=== PATIENT | male | born 1955 ===

== ENCOUNTER 2022-10-13 21:11 | Inpatient (IN) | payer OTHER ==
[~2022-10-13] VITALS: Ht 182.9 cm; Wt 133.7 kg
[2022-10-13 22:30] VITALS: BP 98/64
[2022-10-13] MEDS ORDERED: ELIQUIS2.5 MG PO (22:43)
[2022-10-13] MEDS ORDERED: ATEN50 PO (22:43)
[2022-10-13] MEDS ORDERED: GABA300 PO (22:44)
[2022-10-13 22:45] VITALS: BP 83/60
[2022-10-13] MEDS ORDERED: OMEP20ER PO (22:48)
[2022-10-13] MEDS ORDERED: BASAGLAR K100 UNIT/3 SC (22:52)
[2022-10-13] MEDS ORDERED: ROSU10TA PO (22:53)
[2022-10-13] MEDS ORDERED: OXYC5 PO (22:53)
[2022-10-13] MEDS ORDERED: FURO20 PO (22:54)
[2022-10-13 23:00] VITALS: BP 93/59
[2022-10-13 23:15] VITALS: BP 101/74
[2022-10-13 23:30] VITALS: BP 102/71
[2022-10-13 23:45] VITALS: BP 88/62
[2022-10-14] VITALS (41 sets, daily range): BP systolic 79–126; BP diastolic 47–92
[2022-10-14 01:20] LABS: Base Excess Venous -5.4 mmol/L; Bicarbonate Venous 20.1 mmol/L (24.0-30.0); PCO2 Venous 34.9 mmHg (38-42); pH Blood Venous 7.37 (7.34-7.37)
[2022-10-14 01:24] LABS: BASOPHILS ABSOLUTE AUTO 0.03 K/mm3 (0.00-0.23); BASOPHILS PERCENT AUTO 0 % (0-2); EOSINOPHILS ABSOLUTE AUTO 0.05 K/mm3 (0.00-0.68); EOSINOPHILS PERCENT AUTO 1 % (0-6); Hematocrit 26.1 % (37.0-53.0); IMMATURE GRAN ABSOLUTE AUTO 0.03 K/mm3 (0.00-0.10); IMMATURE GRAN PERCENT AUTO 0 % (0-1); LYMPHOCYTES ABSOLUTE AUTO 0.84 K/mm3 (0.84-5.20); LYMPHOCYTES PERCENT AUTO 10 % (21-46); MONOCYTES ABSOLUTE AUTO 1.05 K/mm3 (0.16-1.47); MONOCYTES PERCENT AUTO 13 % (4-13); Mean Corpuscular HGB 24.4 pg (26.0-34.0); Mean Corpuscular HGB Conc 30.7 g/dL (31.5-36.5); Mean Corpuscular Volume 80 fL (80-100); NEUTROPHILS ABSOLUTE AUTO 6.36 K/mm3 (1.96-9.15); NEUTROPHILS PERCENT AUTO 76 % (41-73); RDW Coefficient Variation 17.5 % (11.7-14.2); RDW Standard Deviation 50.3 fL (35.1-46.3); Red Blood Cell Count 3.28 M/mm3 (4.30-5.90); White Blood Cell Count 8.36 K/mm3 (4.00-11.30)
[2022-10-14 01:32] LABS: Platelet Count 50 K/mm3 (150-400)
[2022-10-14 01:46] LABS: International Normalized Ratio 1.36
[2022-10-14 01:49] LABS: Albumin/Globulin Ratio 0.5 (0.8-1.8); Bilirubin, Total 0.9 mg/dL (0.1-1.0); Bun/Creatinine Ratio 19.8 (12.0-20.0); Creatinine, Blood 2.53 mg/dL (0.60-1.20); Globulin, Blood 3.9 g/dL (2.2-4.0); Magnesium, Blood 1.5 mg/dL (1.6-2.4); Potassium, Blood 4.2 mmol/L (3.5-5.5); Thyroid Stimulating Hormone 7.45 uIU/mL (0.360-4.800); Total Protein, Blood 5.9 g/dL (6.4-8.2)
[2022-10-14 03:00] LABS: Free Thyroxine 0.93 ng/dL (0.70-1.60); Triiodothyronine, Free 1.03 pg/mL (2.18-3.98)
[2022-10-14 05:33] LABS: BASOPHILS ABSOLUTE AUTO 0.02 K/mm3 (0.00-0.23); BASOPHILS PERCENT AUTO 0 % (0-2); EOSINOPHILS ABSOLUTE AUTO 0.11 K/mm3 (0.00-0.68); EOSINOPHILS PERCENT AUTO 2 % (0-6); Hematocrit 28.7 % (37.0-53.0); Hemoglobin 8.8 g/dL (13.5-17.5); IMMATURE GRAN ABSOLUTE AUTO 0.03 K/mm3 (0.00-0.10); IMMATURE GRAN PERCENT AUTO 0 % (0-1); LYMPHOCYTES ABSOLUTE AUTO 0.84 K/mm3 (0.84-5.20); LYMPHOCYTES PERCENT AUTO 12 % (21-46); MONOCYTES ABSOLUTE AUTO 0.84 K/mm3 (0.16-1.47); MONOCYTES PERCENT AUTO 12 % (4-13); Mean Corpuscular HGB 24.9 pg (26.0-34.0); Mean Corpuscular HGB Conc 30.7 g/dL (31.5-36.5); Mean Corpuscular Volume 81 fL (80-100); Mean Platelet Volume 12.4 fL (9.1-12.4); NEUTROPHILS ABSOLUTE AUTO 5.45 K/mm3 (1.96-9.15); NEUTROPHILS PERCENT AUTO 75 % (41-73); RDW Coefficient Variation 17.6 % (11.7-14.2); RDW Standard Deviation 51.5 fL (35.1-46.3); Red Blood Cell Count 3.54 M/mm3 (4.30-5.90); White Blood Cell Count 7.29 K/mm3 (4.00-11.30)
[2022-10-14 05:57] LABS: Platelet Count 49 K/mm3 (150-400)
--- NOTE | 2022-10-14 06:51 | NUR ---
SHIFT SUMMARY PATIENT ARRIVED VIA EMS FROM [facility] ON [facility] AND HEPARIN. PATIENT A&OX4. NO FAMILY AT BEDSIDE. PATIENT ARRIVED WITH X3 PIV'S AND BASSETT CATH ALL PLACED AT [facility] PER ED RN CHRIS. PATIENT ALSO ARRIVED ON 2L NC. PATIENTS VITALS HAVE BEEN STABLE (MAP >65) WTIHOUT PRESSORS AND ON ROOM AIR SINCE ARRIVAL. PATIENT IS VERY EDEMATOUS FROM MID TORSO DOWN TO LOWER EXTREMETIES. PATIENT ARRIVED WITH BUE BRUISING. SCRATCHES AND REDNESS TO BLE. MINIMAL BLOOD CLOTS NOTED IN BASSETT CATH DR. DEL TORO MADE AWARE.
[2022-10-14 08:30] LABS: Source, Urine Foley catheter
[2022-10-14 08:51] LABS: Appearance, Urine Clear (Clear); Bilirubin, Urine Neg (Neg); Blood, Urine 5+ (Neg); Color, Urine Yellow (P-Yellow); Glucose Qualitative, Urine Neg (Neg); Ketones, Urine Neg (Neg); Leukocyte Esterase, Urine 1+ (Neg); Nitrite, Urine Neg (Neg); Protein, Urine 2+ (Neg); Urobilinogen, Urine NORM (Normal)
[2022-10-14 09:09] LABS: Red Blood Cells, Urine 50-100 /hpf (0-2); White Blood Cells, Urine 0-2 /hpf (0-5)
[2022-10-14 09:10] LABS: Bacteria Mod /hpf; Mucus Light (0-Heavy)
[2022-10-14 09:12] LABS: Squamous Epithelial Cells Rare /hpf (Few)
--- NOTE | 2022-10-14 09:17 | NUR ---
ASSUMED CARE REPORT FROM JENNIFER GARCIA AT 0700. PT RESTING IN BED. A&OX 3, UNSURE OF DATE. AWARE OF HX AND SITUATION. PT C/O BACK PAIN ONLY, 11/17, CHRONIC, MEDICATED ORDERED. FOLLOWS SIMPLE COMMANDS. LUNGS DIM IN BASES, ON RA. 1 DEGREE, BP STABLE. RATE 80'S. ABD FIRM, DISTENDED, NON TENDER, BT X 4. HEPATIC DIET ORDERED, TOLERATED WELL. PT HAS 3+ EDEMA FROM BLE TO TRUNK, STATES THIS HAS BEEN OCCURING SINCE JUN, REPORTS THREE ADMISSIONS FOR SAME. BASSETT PATENT, DRAINING CLEAR YELLOW URINE TO GRAVITY. U/S AND ECHO COMPLETE. PARA TOMORROW D/T PT TAKING HOME ELIQUIS YESTERDAY AM. WILL CONTINUE TO MONITOR.
--- NOTE | 2022-10-14 15:05 | NUR ---
Spiritual Care Visit. Pt. is sitting up and eating lunch when he welcomed my visit. Pt. is pleasant but graciously declined spiritual care. Facilitated a short life review. Pt. verbalized that his ruby is mostly something form the past, but verbalized gratitude for the spiritual care visit.
[2022-10-14 16:15] LABS: Albumin, Blood 1.9 g/dL (3.4-5.0); Anion Gap 7 mmol/L (6-16); Blood Urea Nitrogen 47 mg/dL (8-24); Bun/Creatinine Ratio 20.6 (12.0-20.0); CO2, Blood 22 mmol/L (21-32); Calcium, Blood 7.7 mg/dL (8.5-10.1); Chloride, Blood 109 mmol/L (98-108); Creatinine, Blood 2.28 mg/dL (0.60-1.20); Glomerular Filtration Rate 30 (60-); Glucose, Blood 191 mg/dL (70-99); Phosphorus, Blood 3.3 mg/dL (2.5-4.9); Potassium, Blood 3.6 mmol/L (3.5-5.5); Sodium, Blood 138 mmol/L (136-145)
--- NOTE | 2022-10-14 17:26 | NUR ---
SHIFT SUMMARY PT STATUS CHANGED THIS SHIFT. REMAINED OFF PRESSORS, TOLERATED DIURESIS WELL, MAP REMAINED >65. 1000 ML CLEAR YELLOW URINE OUT. PT A&OX 3. FOLLOWS COMMANDS. SLEPT MOST OF SHIFT. LUNGS DIM IN BASES. 1 DEGREE, RATE 80'S. BP STABLE. ABD DISTENDED, FIRM, NON TENDER. BT X 4. TOLERATING DIET WELL. PLAN FOR PARACENTESIS TOMORROW. 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 BASSETT PATENT, DRAINING CLEAR YELLOW URINE TO GRAVITY. 3+ EDEMA TO TRUNK AND BLE. WILL CONTINUE TO MONITOR UNTIL REPORT TO ONCOMING NURSE.
--- NOTE | 2022-10-14 19:05 | NUR ---
ASSUMED CARE PATIENT IN BED SLEEPING. NO FAMILY AT BEDSIDE. VS STABLE. BASSETT CATH PATENT TO GRAVITY
[2022-10-15] VITALS (13 sets, daily range): BP systolic 80–118; BP diastolic 58–86
[2022-10-15 04:59] LABS: BASOPHILS ABSOLUTE AUTO 0.03 K/mm3 (0.00-0.23); BASOPHILS PERCENT AUTO 0 % (0-2); EOSINOPHILS ABSOLUTE AUTO 0.15 K/mm3 (0.00-0.68); EOSINOPHILS PERCENT AUTO 2 % (0-6); Hematocrit 30.6 % (37.0-53.0); Hemoglobin 9.3 g/dL (13.5-17.5); IMMATURE GRAN ABSOLUTE AUTO 0.06 K/mm3 (0.00-0.10); IMMATURE GRAN PERCENT AUTO 1 % (0-1); LYMPHOCYTES ABSOLUTE AUTO 0.96 K/mm3 (0.84-5.20); LYMPHOCYTES PERCENT AUTO 10 % (21-46); MONOCYTES PERCENT AUTO 12 % (4-13); Mean Corpuscular HGB 24.5 pg (26.0-34.0); Mean Corpuscular HGB Conc 30.4 g/dL (31.5-36.5); Mean Corpuscular Volume 81 fL (80-100); NEUTROPHILS ABSOLUTE AUTO 6.91 K/mm3 (1.96-9.15); NEUTROPHILS PERCENT AUTO 75 % (41-73); RDW Coefficient Variation 17.9 % (11.7-14.2); RDW Standard Deviation 51.7 fL (35.1-46.3); White Blood Cell Count 9.21 K/mm3 (4.00-11.30)
[2022-10-15 05:42] LABS: Bun/Creatinine Ratio 21.3 (12.0-20.0); Calcium, Blood 7.9 mg/dL (8.5-10.1); Creatinine, Blood 2.39 mg/dL (0.60-1.20); Potassium, Blood 3.8 mmol/L (3.5-5.5)
[2022-10-15 05:54] LABS: Platelet Count 43 K/mm3 (150-400)
--- NOTE | 2022-10-15 09:17 | NUR ---
UPDATE MD NOTIFIED THIS RN HELD BUMEX D/T PARA TODAY. PT REPORTS TO BE AFRAID OF THE PAIN D/T PARA. ORDERS FOR 50 MCG OF FENTANYL ONCE TO BE GIVEN PRIOR TO PARA. PT TO PARA AT 904.
[2022-10-15 10:44] LABS: Automated BF WBC Count 0.341 K/mm3 (0-999)
[2022-10-15 10:57] LABS: Albumin, Body Fluid 0.8 g/dL; Glucose, Body Fluid 199 mg/dL; Lactate Dehydrogenase, Body Fl 123 U/L
[2022-10-15 11:36] LABS: RBC Count, Body Fluid 204 /mm3 (0-0)
[2022-10-15 11:37] LABS: Appearance, Body Fluid Hazy (Clear); Body Fluid WBC Count 341 /mm3 (0-999); Color, Body Fluid Yellow (None-Yellow)
[2022-10-15 11:49] LABS: Total Cell Count, Body Fluid 100
--- NOTE | 2022-10-15 14:08 | NUR ---
Care Conference: Spoke with pt's Karen at length today; she asks we change pt's code status to DNR/DNI as he has been clear about his wishes throughout the past few hospitalizations, and she states if he gave the impression he only wanted DNI, it is due to confusion. Received v/o from Dr. Alejandre to change this. Karen states she is going into this with her eyes open; that she has a great deal of ruby, but she also realizes the pt could end up needing a higher level of care than she could provide at home, or that he could possibly end up dying as a result of the many complications he is currently experiencing. She plans to come for a visit tomorrow afternoon. Palliative will remain involved.
--- NOTE | 2022-10-15 18:27 | NUR ---
SHIFT SUMMARY PT ALERT AND ORIENTED X 4. FORGETFUL AT TIMES. HR STABLE. BP STABLE. NO CP OR PRESSURE. PT HAD PARA THIS AM. 4 L REMOVED, NO ALBUMIN NEEDED. MINIMAL LEAKING OF FLUID AT PARA SITE. CLEANED AND NEW DRESSING PLACED. OXYGEN SATURATION MAINTAINED ABOVE 92% ON RA. CATHETER REMOVED D/T NO ORDER. PT UNABLE TO URINATE, BLADDER SCAN DONE AND OVER 400. PT IN NEED OF STRAIGHT CATH. SEE EHR FOR INSERTION AND AMOUNT. PT KYMBERLY WELL. PT TURNED Q 2 HRS AND NEEDED. CALL LIGHT WITHIN REACH. WILL CONT TO MONITOR UNTIL REPORT GIVEN TO NIGHTSHIFT RN.
[2022-10-16 00:09] LABS: HBSAG SCREEN Negative (Negative); HCV AB Non Reactive (Non Reactive); HEP A AB, IGM Negative (Negative); HEP B CORE AB, IGM Negative (Negative)
[2022-10-16 04:28] VITALS: BP 109/65
[2022-10-16 05:06] LABS: BASOPHILS ABSOLUTE AUTO 0.03 K/mm3 (0.00-0.23); BASOPHILS PERCENT AUTO 0 % (0-2); EOSINOPHILS ABSOLUTE AUTO 0.14 K/mm3 (0.00-0.68); EOSINOPHILS PERCENT AUTO 2 % (0-6); Hematocrit 27.5 % (37.0-53.0); Hemoglobin 8.8 g/dL (13.5-17.5); IMMATURE GRAN ABSOLUTE AUTO 0.04 K/mm3 (0.00-0.10); IMMATURE GRAN PERCENT AUTO 1 % (0-1); LYMPHOCYTES ABSOLUTE AUTO 0.81 K/mm3 (0.84-5.20); LYMPHOCYTES PERCENT AUTO 10 % (21-46); MONOCYTES ABSOLUTE AUTO 0.81 K/mm3 (0.16-1.47); MONOCYTES PERCENT AUTO 10 % (4-13); Mean Corpuscular HGB 25.3 pg (26.0-34.0); Mean Corpuscular Volume 79 fL (80-100); NEUTROPHILS ABSOLUTE AUTO 6.22 K/mm3 (1.96-9.15); NEUTROPHILS PERCENT AUTO 77 % (41-73); RDW Coefficient Variation 17.8 % (11.7-14.2); RDW Standard Deviation 50.3 fL (35.1-46.3); Red Blood Cell Count 3.48 M/mm3 (4.30-5.90); White Blood Cell Count 8.05 K/mm3 (4.00-11.30)
[2022-10-16 05:32] LABS: Platelet Count 46 K/mm3 (150-400)
--- NOTE | 2022-10-16 06:35 | NUR ---
SHIFT SUMMARY PATIENT ALERT AND ORIENTED X4. PATIENT MEDICATED PER EMAR FOR BACK & L HIP PAIN. NO COMPLAINTS OF CHEST PAIN OR SHORTNESS OF BREATH. PATIENT STRUGGLES TO URINATE EFFECTIVELY HIS SCROTUM HAS SWOLLEN AROUND HIS PENIS, WAS ABLE TO USE THE URINAL WITH ASSISTANCE. PATIENT ON ROOM AIR. VITAL SIGNS STABLE. NO ACUTE ISSUES NOTED OVERNIGHT. WILL CONTINUE TO MONITOR. CALL LIGHT WITHIN REACH.
[2022-10-16 08:44] VITALS: BP 91/56
[2022-10-16 10:39] LABS: Calcium, Blood 7.7 mg/dL (8.5-10.1); Creatinine, Blood 2.32 mg/dL (0.60-1.20)
[2022-10-16 11:52] VITALS: BP 95/66
[2022-10-16 16:35] VITALS: BP 89/67
[2022-10-16 21:15] VITALS: BP 103/75
[2022-10-17 00:15] VITALS: BP 103/70
[2022-10-17 04:10] LABS: BASOPHILS ABSOLUTE AUTO 0.04 K/mm3 (0.00-0.23); BASOPHILS PERCENT AUTO 1 % (0-2); EOSINOPHILS ABSOLUTE AUTO 0.19 K/mm3 (0.00-0.68); EOSINOPHILS PERCENT AUTO 2 % (0-6); Hematocrit 29.2 % (37.0-53.0); Hemoglobin 9.1 g/dL (13.5-17.5); IMMATURE GRAN ABSOLUTE AUTO 0.05 K/mm3 (0.00-0.10); IMMATURE GRAN PERCENT AUTO 1 % (0-1); LYMPHOCYTES ABSOLUTE AUTO 0.76 K/mm3 (0.84-5.20); LYMPHOCYTES PERCENT AUTO 9 % (21-46); MONOCYTES ABSOLUTE AUTO 0.89 K/mm3 (0.16-1.47); MONOCYTES PERCENT AUTO 11 % (4-13); Mean Corpuscular HGB 24.8 pg (26.0-34.0); Mean Corpuscular HGB Conc 31.2 g/dL (31.5-36.5); Mean Corpuscular Volume 80 fL (80-100); NEUTROPHILS ABSOLUTE AUTO 6.12 K/mm3 (1.96-9.15); NEUTROPHILS PERCENT AUTO 76 % (41-73); Platelet Count 56 K/mm3 (150-400); RDW Coefficient Variation 18.1 % (11.7-14.2); RDW Standard Deviation 51.5 fL (35.1-46.3); Red Blood Cell Count 3.67 M/mm3 (4.30-5.90); White Blood Cell Count 8.05 K/mm3 (4.00-11.30)
[2022-10-17 04:42] VITALS: BP 114/73
[2022-10-17 04:45] LABS: Bun/Creatinine Ratio 22.2 (12.0-20.0); Calcium, Blood 7.7 mg/dL (8.5-10.1); Creatinine, Blood 2.34 mg/dL (0.60-1.20); Potassium, Blood 3.7 mmol/L (3.5-5.5)
--- NOTE | 2022-10-17 06:24 | NUR ---
SHIFT SUMMARY PATIENT ALERT AND ORIENTED X4. MEDICATED PER EMAR FOR PAIN. SPO2 >90% ON ROOM AIR, NO COMPLAINTS OF SHORTNESS OF BREATH. VITAL SIGNS STABLE. NO ACUTE ISSUES NOTED OVERNIGHT. CALL LIGHT WITHIN REACH
[2022-10-17 08:42] VITALS: BP 106/64
[2022-10-17 13:16] VITALS: BP 113/73
--- NOTE | 2022-10-17 18:21 | NUR ---
SHIFT SUMMARY S/P HYPOVOLEMIC SHOCK, A/OX4, VSS, TOLERATING PO, PAIN MANAGED PER EMAR, STRESS TEST COMPLETED TODAY, PT HAD AN EPISODE OF HYPOTENSION DURING HIS STRESS TEST SO THIS TEST WAS PUSHED BACK TO THIS AFTERNOON BEFORE IT COULD BE COMPLETED. NO OTHER EVENTS TODAY, CALL LIGHT IN REACH, WILL CTM AND REPORT TO ONCOMING MADELYN RN.
[2022-10-17 20:50] VITALS: BP 101/79
[2022-10-17 23:35] VITALS: BP 99/72
[2022-10-18 04:13] VITALS: BP 82/66
[2022-10-18 04:23] LABS: BASOPHILS ABSOLUTE AUTO 0.04 K/mm3 (0.00-0.23); BASOPHILS PERCENT AUTO 1 % (0-2); EOSINOPHILS ABSOLUTE AUTO 0.23 K/mm3 (0.00-0.68); EOSINOPHILS PERCENT AUTO 4 % (0-6); Hematocrit 27.2 % (37.0-53.0); Hemoglobin 8.5 g/dL (13.5-17.5); IMMATURE GRAN ABSOLUTE AUTO 0.03 K/mm3 (0.00-0.10); IMMATURE GRAN PERCENT AUTO 1 % (0-1); LYMPHOCYTES ABSOLUTE AUTO 0.68 K/mm3 (0.84-5.20); LYMPHOCYTES PERCENT AUTO 11 % (21-46); MONOCYTES ABSOLUTE AUTO 0.72 K/mm3 (0.16-1.47); MONOCYTES PERCENT AUTO 11 % (4-13); Mean Corpuscular HGB 24.9 pg (26.0-34.0); Mean Corpuscular HGB Conc 31.3 g/dL (31.5-36.5); Mean Corpuscular Volume 80 fL (80-100); Mean Platelet Volume 12.5 fL (9.1-12.4); NEUTROPHILS ABSOLUTE AUTO 4.77 K/mm3 (1.96-9.15); NEUTROPHILS PERCENT AUTO 74 % (41-73); Platelet Count 57 K/mm3 (150-400); RDW Coefficient Variation 18.2 % (11.7-14.2); RDW Standard Deviation 51.7 fL (35.1-46.3); Red Blood Cell Count 3.41 M/mm3 (4.30-5.90); White Blood Cell Count 6.47 K/mm3 (4.00-11.30)
[2022-10-18 04:45] LABS: Albumin, Blood 1.6 g/dL (3.4-5.0); Albumin/Globulin Ratio 0.4 (0.8-1.8); Bilirubin, Total 0.7 mg/dL (0.1-1.0); Bun/Creatinine Ratio 22.8 (12.0-20.0); Calcium, Blood 7.6 mg/dL (8.5-10.1); Creatinine, Blood 2.19 mg/dL (0.60-1.20); Potassium, Blood 3.7 mmol/L (3.5-5.5); Total Protein, Blood 5.6 g/dL (6.4-8.2)
[2022-10-18 04:59] VITALS: BP 97/70
--- NOTE | 2022-10-18 06:48 | NUR ---
SHIFT SUMMARY PATIENT ALERT AND ORIENTED X4. VITAL SIGNS STABLE. ON ROOM AIR OVERNIGHT. MEDICATED PER EMAR FOR PAIN. NO ACUTE ISSUES NOTED. WILL CONTINUE TO MONITOR. CALL LIGHT WITHIN REACH.
[2022-10-18 06:53] VITALS: BP 115/79
--- NOTE | 2022-10-18 07:35 | NUR ---
Received in room report from Noc RN. Patient is resting but awakens very easily to verbal stimuli. He is alert and oriented and is able to communicate his needs. He is on RA and weston 100% and denies any SOB or difficulty breathing. He has urinal at bedside within reach and uses appropriately. He has 20ga IV to LW and is flushe and SL'd. See VS in EMR. He is SR 80's. His shiny LE from toes to groin have 3+ pitting edema. He is able to MUEW and limited r/t edema to MLEW. Patient on fluid restrictions and discussed with patient. Patient denies any current needs.
--- NOTE | 2022-10-18 11:02 | NUR ---
Patient has been in chair since breakfast this am. Patient ate 100% of breakfast and tolerated all am meds without problems. He required pain meds this am for lower back and hip pain that was efective to 4-5/10 and managable. He is wanting to assure that Dr Jackson updates as she will be home all day.
[2022-10-18 11:34] VITALS: BP 102/69
--- NOTE | 2022-10-18 15:30 | NUR ---
Patient has been back in bed and tolerating wel. During urination he has had some small smears of stool and feels bad. We have cleaned him up twice foer small amounts of stool and changed linen. Called Dr Alejandre and got order for Banatrol. He is been changed to Medical with tele. He continues on RA and sats in the high 90%'s. He assists with positioning and turning.
[2022-10-18 16:43] VITALS: BP 119/74
--- NOTE | 2022-10-18 17:26 | NUR ---
ATTEMPTED TO ADMINISTER BANNITROL PT REFUSED, HE IS EDUCATED THOROUHGLY THAT THIS WILL SLOW DOWN HIS FREQUENT LARGE STOOLS THAT HAVE CAUESD HIM CONCERN TODAY AND MADE HIM STATE THE HE WILL STOP EATING HE IS HAVE TOO MANY BMs TODAY. PT CONTINUES TO REFUSE, THIS WAS ADJUSTED ON EMAR.
[2022-10-18 21:49] VITALS: BP 103/68
[2022-10-19 04:04] VITALS: BP 96/66
[2022-10-19 04:11] LABS: BASOPHILS ABSOLUTE AUTO 0.06 K/mm3 (0.00-0.23); BASOPHILS PERCENT AUTO 1 % (0-2); EOSINOPHILS ABSOLUTE AUTO 0.29 K/mm3 (0.00-0.68); EOSINOPHILS PERCENT AUTO 4 % (0-6); Hematocrit 28.3 % (37.0-53.0); IMMATURE GRAN ABSOLUTE AUTO 0.03 K/mm3 (0.00-0.10); IMMATURE GRAN PERCENT AUTO 0 % (0-1); LYMPHOCYTES ABSOLUTE AUTO 0.74 K/mm3 (0.84-5.20); LYMPHOCYTES PERCENT AUTO 11 % (21-46); MONOCYTES ABSOLUTE AUTO 0.72 K/mm3 (0.16-1.47); MONOCYTES PERCENT AUTO 11 % (4-13); Mean Corpuscular HGB Conc 31.8 g/dL (31.5-36.5); Mean Corpuscular Volume 79 fL (80-100); NEUTROPHILS ABSOLUTE AUTO 4.98 K/mm3 (1.96-9.15); NEUTROPHILS PERCENT AUTO 73 % (41-73); Platelet Count 65 K/mm3 (150-400); RDW Coefficient Variation 18.4 % (11.7-14.2); RDW Standard Deviation 51.4 fL (35.1-46.3); White Blood Cell Count 6.82 K/mm3 (4.00-11.30)
[2022-10-19 04:31] LABS: Albumin, Blood 1.5 g/dL (3.4-5.0); Albumin/Globulin Ratio 0.4 (0.8-1.8); Bilirubin, Total 0.7 mg/dL (0.1-1.0); Bun/Creatinine Ratio 24.2 (12.0-20.0); Calcium, Blood 7.6 mg/dL (8.5-10.1); Creatinine, Blood 1.98 mg/dL (0.60-1.20); Globulin, Blood 4.1 g/dL (2.2-4.0); Potassium, Blood 3.3 mmol/L (3.5-5.5); Total Protein, Blood 5.6 g/dL (6.4-8.2)
[2022-10-19 05:00] LABS: TOTAL CELLS COUNTED 2
--- NOTE | 2022-10-19 06:35 | NUR ---
RENTAL CAR PORTER SUMMARY ASSUMED CARE OF THE PT AT 1900. HE IS ALERT AND ORIENTED X4, MODERATELY COMPLIANT WITH CARE BUT IRRITABLE AT TIMES. HE IS MAXIMUM ASSIST/LIFT. PT HAS 3+ PITTING EDEMA THROUGHOUT AND THIS RN REQUESTED REPEAT BNP THIS AM WHICH WAS 1575, ELEVATED FROM PREVIOUS. PT UPSET ABOUT NURSE ENFORCEMENT OF 1500 FLUID RESTRICTION BUT THIS RN INFORMED PT OF REASON FOR RESTRICTION AND PT MODERATELY COOPERATIVE. HE HAS BEEN SINUS WITH FIRST DEGREE BLOCK ON TELE. SOFT BPS. SATURATIONS REMAIN IN HIGH 90S ON RA. PT HAD TWO LOOSE BMS THIS SHIFT. Q2 TURNS. SKIN IS MACERATED AND RED FROM SWELLING.
[2022-10-19 06:50] VITALS: BP 117/68
--- NOTE | 2022-10-19 07:19 | NUR ---
Received report from Noc RN. Patient awake in bed and is able to communicate his needs. He is very focused on liquids and wants every ml allowed as soon as he can gety it. He is on RA and sats >90%. He has 20ga IV ib left lower forearm and is flushed and SL'd for Abx. Moves upper extremities well and with fine motor skils and needs assistance wit bilateral LE's and the have 3+ edema t/o and are heave to move. He uses kiran as needed and has been having loose stools and medicated with banatrol in small amount of milk. He remains on fluid restriction. See EMR for VS.
--- NOTE | 2022-10-19 11:30 | NUR ---
Patient up to bedside cammode and was able to assist with transfer with 1 1/2 assist. He the got bed bath and all linen changed. Dr Goldstein was in room briefly and was going to call spouse and give her update and no new orders. CBG 179 and will cover per MAR. No changes with patient. He remains on RA and sats >90%.
[2022-10-19 11:58] VITALS: BP 132/64
--- NOTE | 2022-10-19 15:30 | NUR ---
Patient remains up in chair with HF NC at 13L O2 and sats >90%. She has been pleasant and cooperative with care and call appropriately. She still remains exertional SOB with transfer. She continues to use purwick and good yellow output. No real significant changes with patient.
[2022-10-19 18:26] VITALS: BP 105/63
--- NOTE | 2022-10-19 18:35 | NUR ---
Patient has been doing well today and remains med status. He continues to be alert and oriented and loves to bargin for more liquid intake without success. I have educated him several times that he needs less water than we are giving and does not6 help to try to increase if he wants to go home./ He is getting better with getting up to cammode and transfer to chair to bed and vice versa. Continues to have loose bowel. medicated for pain in legs and lower back per MAR. IV to RFA patent and infusing Abx. Patient has urinal within reach and tolerates use well. Calls when needing care.
[2022-10-19 20:12] VITALS: BP 103/65
[2022-10-20 04:34] LABS: Calcium, Blood 7.3 mg/dL (8.5-10.1); Creatinine, Blood 1.8 mg/dL (0.60-1.20); Magnesium, Blood 1.4 mg/dL (1.6-2.4); Potassium, Blood 3.5 mmol/L (3.5-5.5)
[2022-10-20 04:40] VITALS: BP 117/63
--- NOTE | 2022-10-20 06:40 | NUR ---
MEAL PACKER SUMMARY ASSUMED CARE OF THE PT AT 1900. HE IS ALERT AND ORIENTED X4, SOMEWHAT COOPERATIVE WITH CARE. PT WAS UP IN CHAIR AND TOOK 2 STAFF TO ASSIST BACK TO BED. PT HAVING LOOSE BMS X2 THIS SHIFT. HE REFUSED BANATROL DUE TO IT "TAKING AWAY FROM MY FLUIDS". PT MORE COOPERATIVE REGARDING FLUID RESTRICTION. CONDOM CATH PLACED PER PT REQUEST DUE TO DIFFICULTY WITH USING URINAL. VSS. PT HAS BEEN SINUS ON TELE. HE HAS BEEN SATTING HIGH 90S ON RA. PT DID START COMPLAINING OF NAUSEA AROUND 0330 THIS MORNING. ATTEMPTED NON-PHARMACEUTICAL TREATMENT AND DIVERSION. CONTACTED RESIDENT WHEN NAUSEA PERSISTED. ORDER OBTAINED FOR PRN ZOFRAN. PT REPORTS IMPROVEMENT THIS AM.
[2022-10-20 07:37] VITALS: BP 97/63
[2022-10-20 09:58] VITALS: BP 124/74
[2022-10-20 14:43] VITALS: BP 113/72
--- NOTE | 2022-10-20 15:54 | NUR ---
PATIENT TRANSFERED FROM PCU 20 TO ROOM 340, REPORT CALLED TO RADHA GODWIN.
[2022-10-20 15:55] VITALS: BP 117/77
--- NOTE | 2022-10-20 15:57 | NUR ---
PATIENT A/OX4, UP WITH FWW AND 1 ASSIST TO CHAIR. REPORTS NAUSEA AND 10/10 PAIN THIS AM. ZOFRAN GIVEN X2 TO TREAT. OXYCODONE GIVEN X2 TO TREAT PAIN WITH SOME RELIEF AND PATIENT WAS ABLE TO REST FOR A FEW HOURS. VSS, ON RA. MULTIPLE BRUISES TO BUE/BLE. 3+ EDEMA TO ABDOMEN AND BLE. VERY LITTLE PO INTAKE TODAY D/T UPSET STOMACH, FLUID RESTRICTION OF 1.5L. PATIENT COOPERATIVE WITH CARE AND ABLE TO MAKE NEEDS KNOWN. CALLS FOR ASSISTANCE WITH URINAL. REFUSED TO WORK WITH PT/OT TODAY D/T PAIN AND NAUSEA.
--- NOTE | 2022-10-20 18:16 | NUR ---
TRANSFER FROM PCU TODAY IN STABLE CONDITION. NO ACUTE EVENTS THIS SHIFT. PT IS WEAK AND LETHARGIC. AAOX3-4. X1-2 PERSON ASSIST.
[2022-10-20 19:07] VITALS: BP 125/82
[2022-10-21 04:42] VITALS: BP 113/75
--- NOTE | 2022-10-21 05:21 | NUR ---
SUMMARY: PT A/OX4, CALLS APPROPRIATELY TO SPECIFY NEEDS AND IS PLEASANT AND COOPERATIVE W/CARE. HE HAD ABDO/PELVIS CT THIS EVENING AND REQUIRED SLIDE T/F TO ANDREW D/T REPORTING FEELING TOO WEAK AND UNWELL TO STAND AT THE TIME. HIS ABDO REMAINS ROUND, DISTENDED AND TENDER W/HYPOACTIVE BT'S. HE C/O NAUSEA AT START OF SHIFT AND INTERMITTENT ABDO CRAMPING/PAIN. ZOFRAN AND ROXICODONE RECEIVED FOR TOLERABLE EFFECTS AND IV ABX PROVIDED PER EMAR. 3+ BLE EDEMA PERSISTS AND 1500 ML FR MAINTAINED W/BUMEX BEING RECEIVED ON DAY SHIFT. URINAL ASSIST PROVIDED PRN AND TURN SCHEDULE MAINTAINED. NO ACUTE CHANGES, VSS AND AFEBRILE. WCTM AND REPORT TO DAY RN.
[2022-10-21 05:52] LABS: Bun/Creatinine Ratio 26.3 (12.0-20.0); Calcium, Blood 7.6 mg/dL (8.5-10.1); Creatinine, Blood 1.52 mg/dL (0.60-1.20); Magnesium, Blood 1.7 mg/dL (1.6-2.4)
[2022-10-21 07:27] VITALS: BP 98/63
--- NOTE | 2022-10-21 07:38 | NUR ---
TELEPHONE VERBAL FROM DR. MINOR FOR NPO ORDER DUE TO POTENTIAL ZULAY LATER TODAY.
--- NOTE | 2022-10-21 08:40 | NUR ---
TELEPHONE VERBAL FROM DR. MINOR TO HOLD ALL AM MEDS EXCEPT LOVENOX.
[2022-10-21 14:57] VITALS: BP 106/61
--- NOTE | 2022-10-21 18:23 | NUR ---
SUMMARY- PT'S PAIN HARD TO CONTROL THIS SHIFT. MUSCLE RELAXER DID HELP. PT REFUSED TO GET OOB W/ PT AND OT. PT TRIED WALKING W/RN LATE THIS SHIFT AND GOT DIZZY. AAOX3. CONFUSED ABOUT EXACT SITUATION. X2 ASSIST.
[2022-10-21 19:30] VITALS: BP 114/58
[2022-10-22 03:05] VITALS: BP 96/62
[2022-10-22 05:53] LABS: Bun/Creatinine Ratio 22.2 (12.0-20.0); Calcium, Blood 7.6 mg/dL (8.5-10.1); Creatinine, Blood 1.98 mg/dL (0.60-1.20); Potassium, Blood 3.8 mmol/L (3.5-5.5)
--- NOTE | 2022-10-22 06:34 | NUR ---
SHIFT SUMMARY PT LAYING IN BED WITH EYES CLOSED DURING BEDSIDE ROUNDS- GAVE FLEXERIL WITH HS MEDS FOR RIGHT HIP PAIN- CALL TO CHRIS CHAUHAN RE: PT REQUESTING HOME DOSE OXYCODONE 5-10MG- PT REPORTED HE TAKES OXYCODONE 10MG FOR CHRONIC PAIN FOR A LONG TIME- 2144 GAVE ADDITIONAL DOSE OF OXYCODONE 5MG PO - PT USED CALL LIGHT SEVERAL TIMES C/O SEVERE RIGHT HIP PAIN- PT REPOSITIONED MULTIPLE TIMES, HEAT AND ICE ALTERNATED ON RIGHT HIP-PT REQUESTED THIS RN TO CALL AND REQUEST IV PAIN MEDICATION, CHRIS CHAUHAN CONCERNED AGREED TO GIVE ADDITIONAL PAIN MEDICATION X - 9 GAVE FENTANYL 25MCG -004 PT REPORTED NO RELIEF FROM ANY METHODS AND REQUESTED TO GET UP TO CHAIR- 2 PERSON ASSIST WITH GAIT BELT TO CHAIR- PT TOLERATED WELL- PT GOT RELIEF FOR ABOUT 15 MINUTES UP TO CHAIR- PT C/O LEFT HIP PAIN - APPLIED ICE TO BILAT HIPS 0230 PT REQUESTED TO GO BACK TO BED - PT TOO WEAK - USED NELLIE LIFT -244 GAVE OXYCODONE 10MG AND FLEXERIL 5MG FOR BILAT HIP PAIN- REPOSITIONED AND ENCOURAGED PT TO TURN OFF LIGHTS AND ATTEMPT TO SLEEP- PT SLEEP FOR A FEW HOURS WITHOUT S/S DISTRESS- 0630 PT INQUIRED RE: PAIN MEDICATION- NOTIFIED PT OF TOO SOON- PT FEARFUL OF PAIN GETTING WORSE- BED LOW POSITION, CALL LIGHT WITHIN REACH
[2022-10-22 07:28] VITALS: BP 86/52
[2022-10-22 09:42] VITALS: BP 82/49
[2022-10-22 13:35] VITALS: BP 87/49
--- NOTE | 2022-10-22 15:34 | NUR ---
REPORT GIVEN TO ASHLEIGH GARCIA TO RESUME CARE OF PT 1530
[2022-10-22 15:39] LABS: Bun/Creatinine Ratio 21.7 (12.0-20.0); Calcium, Blood 7.6 mg/dL (8.5-10.1); Creatinine, Blood 2.17 mg/dL (0.60-1.20); Potassium, Blood 4.1 mmol/L (3.5-5.5)
[2022-10-22 16:10] VITALS: BP 79/54
--- NOTE | 2022-10-22 16:55 | NUR ---
This RN has continued having daily conversations with pt's Milly since 10/15, discussing his progress, or lack thereof. Pt has continued to decline, and Milly asked a couple days ago if it seemed he would need hospice? However, the pt has not indicated he would be interested in comfort care, and wanted to continue working on "getting better". This afternoon, Dr. Corea and Dr. Alejandre report the pt's condition is declining rapidly, due to low BP and severe anasarca and bilateral hip pain. Attempting to reach pt's as the decision maker, but no answer so far. Left a VM, requesting a return call.
--- NOTE | 2022-10-22 17:29 | NUR ---
Met with pt at bedside, he states he wants to go comfort care. He does verbalize his blood pressure is low, and he states he "knows" he is "getting worse" and states he can tell he is dying. We were able to reach his Milly from his phone, and we did a quick conference call. I explained to Milly the pt's blood pressure is dropping, and he has elected comfort care. He states, "That's right", and tells Milly he loves her. He declines to speak anymore and asks that I explain to her what is happening at this time. She is tearful, but in agreement, and pt is now being placed on Comfort Care. [place]. Comfort orders now in place, along with medications. Bedside RN aware, as is Dr. Alejandre and Dr. Corea, and they are in agreement. Dr. Alejandre gave verbal order for comfort care.
--- NOTE | 2022-10-22 18:15 | NUR ---
SHIFT SUMMARY ASSUMED CARE OF PATIENT. PATIENT IRRITABLE, C/O PAIN, BP CONTINUES TO BE LOW. PROVIDERS NOTIFIED OF LOW BLOOD PRESSURES, CONTINUED PAIN, AND IRRITABILITY. PATIENT CONTINUES TO HAVE ANASARCA. BP MEDS AND DIURETICS HELD AT THIS POINT. ADDITIONAL DOSE OF MIDODRINE GIVEN AND INCREASED. PATIENT ABLE TO REST AFTER DOSE OF DILAUDID. PATIENT TRANSITIONED TO COMFORT CARE. FAMILY NOTIFIED AND INVOLVED IN DECISION. PALIATIVE CARE INVOLVED.
[2022-10-22 19:48] VITALS: BP 86/63
--- NOTE | 2022-10-23 06:55 | NUR ---
SHIFT SUMMARY PT LAYING IN BED DURING BEDSIDE ROUNDS- PT STATUS CHANGED TO CARE AND COMFORT- REPORT THAT GERALD IS ON HER WAY TO BE WITH HIM- AND DAUGHTER STAYED FOR A FEW HOURS AND LEFT FOR THE NIGHT- PT VERY RESTLESS AND REQUESTED TO USE URINAL X2 WITH NO OUTPUT- BLADDER SCAN SHOWED 941 ML IN BLADDER- CALL TO [facility] HOME RESTORATION SERVICE SUPERVISOR - NEW ORDER FOR BASSETT CATHETER- INSERTED BASSETT CATHETER WITH IMMEDIATE MICHAEL URINE RETURN- PT MEDICATED MULTIPLE TIMES T/O SHIFT FOR ANXIETY AND PAIN- PT REPOSITIONED OFTEN PER HIS REQUEST- BED LOW POSITION, CALL LIGHT WITHIN REACH
--- NOTE | 2022-10-23 08:31 | NUR ---
PRONOUCEMENT PROVIDER DR. MINOR NOTIFIED OF THE TIME OF BEING 819.
--- NOTE | 2022-10-23 11:48 | NUR ---
Pt this morning, and pt's Karen was notified. She spend some time with hime last night before driving home to [place] for the night. She asked we send pt to [facility] in [place]. This RN will meet with her when she arrives to give my condolences.
--- NOTE | 2022-10-23 12:08 | NUR ---
Called [facility], spoke to Rolando. They are going to take Rolando into their care. Karen arrived to sweet pickle maker belongings. She thanked staff for caring for Dejuan.
== END 2022-10-23 08:20 | DRG 871 ==
LOC: ICUE 21:11 → PCU 22:15 → ICUE 22:15 → MEDS 22:15 → ICUE 10-14 17:20 → PCU 10-15 08:25 → MEDS 10-20 15:46
PROVIDERS: Family Medicine; Hospitalist; Internal Medicine; ADMIT Student in an Organized Health Care Education/Training Program
PROC: 0T9B70Z Drainage of Bladder with Drainage Device, Via Natural or Artificial Opening (ICD-10-PCS; 2022-10-14)
PROC: 0W9G3ZZ Drainage of Peritoneal Cavity, Percutaneous Approach (ICD-10-PCS; 2022-10-15)
PROC: 3E03329 Introduction of Other Anti-infective into Peripheral Vein, Percutaneous Approach (ICD-10-PCS; principal; 2022-10-17)
DX: A41.81 Sepsis due to Enterococcus (principal); I21.4 Non-ST elevation (NSTEMI) myocardial infarction; R65.21 Severe sepsis with septic shock; E87.1 Hypo-osmolality and hyponatremia; N17.9 Acute kidney failure, unspecified; R18.8 Other ascites; I13.0 Hypertensive heart and chronic kidney disease with heart failure and stage 1 through stage 4 chronic kidney disease, or unspecified chronic kidney disease; Z68.41 Body mass index [BMI] 40.0-44.9, adult; I50.32 Chronic diastolic (congestive) heart failure; K74.60 Unspecified cirrhosis of liver; Z66 Do not resuscitate; Z51.5 Encounter for palliative care; K80.20 Calculus of gallbladder without cholecystitis without obstruction; K21.9 Gastro-esophageal reflux disease without esophagitis; R79.0 Abnormal level of blood mineral; D73.5 Infarction of spleen; D69.6 Thrombocytopenia, unspecified; N20.0 Calculus of kidney; E88.09 Other disorders of plasma-protein metabolism, not elsewhere classified; E11.40 Type 2 diabetes mellitus with diabetic neuropathy, unspecified; G89.29 Other chronic pain; N18.30 Chronic kidney disease, stage 3 unspecified; E11.22 Type 2 diabetes mellitus with diabetic chronic kidney disease; E66.9 Obesity, unspecified; E87.8 Other disorders of electrolyte and fluid balance, not elsewhere classified; R94.6 Abnormal results of thyroid function studies; D63.1 Anemia in chronic kidney disease; I25.10 Atherosclerotic heart disease of native coronary artery without angina pectoris; E78.5 Hyperlipidemia, unspecified; Z95.4 Presence of other heart-valve replacement; Z95.5 Presence of coronary angioplasty implant and graft; Z88.2 Allergy status to sulfonamides; Z79.01 Long term (current) use of anticoagulants; Z88.6 Allergy status to analgesic agent; Z79.891 Long term (current) use of opiate analgesic; Z85.05 Personal history of malignant neoplasm of liver; Z96.641 Presence of right artificial hip joint; Z79.4 Long term (current) use of insulin; Z79.899 Other long term (current) drug therapy
CPT/HCPCS: 36415; 49083; 51701; 71045; 74176; 76770; 78452; 80048; 80053; 80069; 80074; 81001; 82042; 82570; 82803; 82945; 82947; 83605; 83615; 83735; 83880; 84100; 84132; 84157; 84439; 84443; 84481; 84484; 84540; 85025; 85610; 85730; 87040; 87070; 87077; 87086; 87186; 87205; 89051; 93005; 93010; 93017; 97110; 97162; 97166; 97530; A9270; A9500; C8929; C9113; J0280; J0295; J0696; J1170; J1650; J1815; J1940; J2060; J2405; J2543; J2785; J3010; J3475; J7030; J7050; Q9957